=== PATIENT | male | born 1960 | race Caucasian/White ===

== ENCOUNTER 2020-11-30 01:10 | Emergency (ER) | payer OTHER ==
[~2020-11-30] VITALS: Ht 160 cm; Wt 75.8 kg
[2020-11-30] MEDS ORDERED: ADVAIR HFA 230M12 GM (01:29)
[2020-11-30] MEDS ORDERED: PROAIR HFA8.5 GM INH (01:30)
[2020-11-30] MEDS ORDERED: TOPROL XL25 MG PO (01:30)
[2020-11-30] MEDS ORDERED: PLAVIX 75 MG TA75 MG PO (01:30)
[2020-11-30] MEDS ORDERED: IMDUR 30 MG TAB30 M1 PO (01:31)
[2020-11-30] MEDS ORDERED: NITROSTAT0.4 M1 (01:32)
[2020-11-30] MEDS ORDERED: SPIRIVA INH (01:32)
[2020-11-30] MEDS ORDERED: NARCAN4 MG NARES (01:32)
[2020-11-30] MEDS ORDERED: CLONAZEPAM 0.50.5 M1 PO (01:34)
[2020-11-30 01:35] LABS: ABSOLUTE NEUTROPHILS 4.9 thou/uL (1.4-8.2); BASOPHILS 0.8 % (0.0-2.0); EOSINOPHILS 2.7 % (0.0-3.0); HEMATOCRIT 43.5 % (42.0-52.0); LYMPHOCYTES 32.3 % (24.0-44.0); MCH 32.5 pg (26.0-34.0); MCHC 34.6 g/dL (28.0-37.0); MONOCYTES 7.8 % (1.0-8.0); PLATELET COUNT 281 thou/uL (150-400); POLYS 56.4 % (36.0-66.0); RBC 4.62 mil/uL (4.50-6.00); RDW 12.1 % (10.5-14.5); WBC 8.7 thou/uL (4.0-11.0)
[2020-11-30] MEDS ORDERED: PROTONIX40 M2 PO (01:35)
[2020-11-30] MEDS ORDERED: PERCOCET 10-321 EAC1 PO (01:35)
[2020-11-30] MEDS ORDERED: LITHIUM CARBON300 M7 PO (01:36)
[2020-11-30] MEDS ORDERED: NORVASC5 MG PO (01:37)
[2020-11-30] MEDS ORDERED: LIPITOR80 MG PO (01:37)
[2020-11-30] MEDS ORDERED: ASA81BEC PO (01:37)
[2020-11-30 01:51] LABS: ANION GAP 6 mmol/L (7-16); BUN 23 mg/dL (7-18); CALCIUM 8.6 mg/dL (8.5-10.1); CHLORIDE 106 mmol/L (98-107); CO2 30 mmol/L (21-32); CREATININE 1.2 mg/dL (0.7-1.3); GLUCOSE 142 mg/dL (74-106); POTASSIUM 3.9 mmol/L (3.5-5.1); SODIUM 142 mmol/L (136-145)
[2020-11-30 02:00] LABS: ALBUMIN 3.7 g/dL (3.4-5.0); SGOT 23 U/L (15-37); SGPT 29 U/L (16-63); TOTAL BILIRUBIN 0.9 mg/dL (0.2-1.0); TOTAL PROTEIN 7.3 g/dL (6.4-8.2); TROPONIN-I <0.06 ng/mL (<0.06)
[2020-11-30 02:58] VITALS: BP 119/66
--- NOTE | 2020-11-30 13:14 | EKG ---
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: : 1960 Requested By: Jesusita Taylor Order Number: [id number] MD: Pipo Walker Measurements Intervals [place] Rate: 74 P: 41 CA: 161 QRS: 266 QRSD: 82 T: 50 QT: 383 QTc: 425 Interpretive Statements Sinus rhythm Ventricular premature complex LAD, consider left anterior fascicular block RSR' in V1 or V2, right VCD or RVH No previous ECG available for comparison Electronically Signed On 11-30-2020 13:14:09 CDT by Pipo Walker [email or web address] <ELECTRONICALLY SIGNED> By: Pipo Walker MD 11/30/20 1314 [id number] Pipo Walker MD /GLENN
== END 2020-11-30 03:07 | disposition home or self-care (01) ==
LOC: ER 01:10
PROVIDERS: Emergency Medicine
DX: R07.89 Other chest pain (principal); I25.10 Atherosclerotic heart disease of native coronary artery without angina pectoris; E78.5 Hyperlipidemia, unspecified; E11.9 Type 2 diabetes mellitus without complications; Z88.0 Allergy status to penicillin; Z88.6 Allergy status to analgesic agent; Z79.82 Long term (current) use of aspirin; Z79.899 Other long term (current) drug therapy